=== PATIENT | female | born 1960 | race Hispanic/Latino ===

== ENCOUNTER 2019-11-16 19:15 | Emergency (ER) | payer MEDICAID ==
[2019-11-16 21:35] VITALS: BP 129/74
[2019-11-16] MEDS ORDERED: ACETAMINOPHEN 325 MG TAB PO ONE (21:35)
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
[2019-11-16 23:37] LABS: Bilirubin,Urine NEG (Negative); Blood,Urine NEG (Negative); Calcium Oxalate Crystals,Urine 3+; Color,Urine Amber (Yellow); Mucus,Urine 1+ /HPF
[2019-11-17] MEDS ORDERED: oxyCODONE 5 MG TAB PO ONE (02:13)
[2019-11-17] MEDS ORDERED: oxyCODONE /ACETAMINOPHEN 5-325MG TAB PO ONE (02:17)
== END 2019-11-17 02:52 ==
LOC: ED 19:15
DX: M54.5 Low back pain (principal); R26.2 Difficulty in walking, not elsewhere classified; Z53.21 Procedure and treatment not carried out due to patient leaving prior to being seen by health care provider
CPT/HCPCS: 81001